=== PATIENT | female | born 1995 | race Caucasian/White ===

== ENCOUNTER 2017-08-20 07:57 | Emergency (ER) | payer OTHER, SELFPAY ==
--- NOTE | 2017-08-20 08:50 | ER ---
Nurse's Notes [facility] Name: Shawnee Green Age: 22 yrs Sex: Female : 1995 Arrival Date: 08/20/2017 Time: 07:59 Bed 19 Private MD: None, None Diagnosis: Streptococcal pharyngitis Presentation: 08/20 08:00 Presenting complaint: Patient states: sore throat, "sores on tongue", lymph nodes sv enlarged on neck that started last night. Transition of care: patient was not received from another setting of care. Onset of symptoms was August 19, 2017. Care prior to arrival: None. 08:00 Method Of Arrival: Ambulatory sv 08:00 Acuity: HOLLIE 3 sv 09:02 Risk Assessment: Do you want to hurt yourself or someone else? Patient reports no jl7 desire to harm self or others. Initial Sepsis Screen: Does the patient meet any 2 criteria? No. Patient's initial sepsis screen is negative. Does the patient have a suspected source of infection? No. Patient's initial sepsis screen is negative. 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 - Social history:: Smoking status: Patient uses tobacco products, smokes one-half pack cigarettes per day, Patient uses alcohol, every other day. Patient/guardian denies using street drugs, IV drugs. - Ebola Screening: : No symptoms or risks identified at this time. Screenin:10 Abuse screen: Denies threats or abuse. Denies injuries from another. Nutritional jl7 screening: No deficits noted. Tuberculosis screening: No symptoms or risk factors identified. Fall Risk None identified. Assessment: 08:10 General: Appears in no apparent distress. uncomfortable, Behavior is cooperative, jl7 anxious. Pain: Complains of pain in throat and neck Pain does not radiate. Pain currently is 7 out of 10 on a pain scale. Quality of pain is described as Sore. Neuro: Level of Consciousness is awake, alert, obeys commands, Oriented to person, place, time, situation. Cardiovascular: Patient's skin is warm and dry. Respiratory: Airway is patent Respiratory effort is even, unlabored, Respiratory pattern is regular, symmetrical, Breath sounds are clear bilaterally. EENT: Oral mucosa is dry. Lesions noted. Throat has patchy exudate has enlarged tonsils bilaterally Cervical nodes enlarged bilaterally. Vital Signs: 08:07 BP 118 / 76; Pulse 111; Resp 16; Temp 98.6; Pulse Ox 98% ; Weight 39.92 kg; Height 4 sv ft. 11 in. (149.86 cm); Pain 7/10; 08:07 Body Mass Index 17.77 (39.92 kg, 149.86 cm) sv ED Course: 07:59 Patient arrived in ED. as 07:59 None, None is Private Physician. as 08:00 Arm band placed on right wrist. Patient placed in an exam room, on a stretcher. sv 08:06 Triage completed. sv 08:09 Karime Oliveira, KATIE is Primary Nurse. jl7 08:10 Patient has correct armband on for positive identification. Bed in low position. Call jl7 light in reach. Side rails up X 1. Pulse ox on. NIBP on. 08:11 Jean-Claude Beach PA is PHCP. cp 08:11 Maciel Khan MD is Attending Physician. cp 08:20 Strep swab sent to lab. jl7 09:03 No provider procedures requiring assistance completed. Patient did not have IV access jl7 during this emergency room visit. Administered Medications: No medications were administered Outcome: 08:49 Discharge ordered by . cp 09:03 Discharged to home ambulatory. jl7 09:03 Condition: stable 09:03 Discharge instructions given to patient, Instructed on discharge instructions, follow up and referral plans. medication usage, Demonstrated understanding of instructions, follow-up care, medications, Prescriptions given X 1. 09:03 Patient left the ED. jl7 Signatures: Marci Barreto, RN Karen Charlton as Jean-Claude Beach PA PA cp Leal, Jahala, RN RN jl7
--- NOTE | 2017-08-20 08:50 | EDPHYS ---
Physician Documentation [facility] Name: Shawnee Green Age: 22 yrs Sex: Female : 1995 Arrival Date: 08/20/2017 Time: 07:59 Bed 19 Private MD: None, None ED Physician Maciel Khan HPI: 08/20 08:16 This 22 yrs old Female presents to ER via Ambulatory with complaints of Sore cp Throat. 08:16 The patient presents with sore throat, "sores" in throat. cp 08:16 Onset: The symptoms/episode began/occurred yesterday. cp 08:16 Severity of symptoms: in the emergency department the symptoms are unchanged, despite cp home interventions. Associated signs and symptoms: Pertinent negatives cough, dysphagia, earache, fever. 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 - Social history:: Smoking status: Patient uses tobacco products, smokes one-half pack cigarettes per day, Patient uses alcohol, every other day. Patient/guardian denies using street drugs, IV drugs. - Ebola Screening: : No symptoms or risks identified at this time. ROS: 08:20 Constitutional: Negative for body aches, chills, fever, poor PO intake. cp 08:20 Eyes: Negative for injury, pain, redness, and discharge. cp 08:20 ENT: Positive for sore throat, Negative for drainage from ear(s), ear pain, difficulty swallowing, difficulty handling secretions. 08:20 Neck: Positive for swollen nodes. 08:20 Respiratory: Negative for cough, wheezing. 08:20 Abdomen/GI: Negative for abdominal pain, nausea, vomiting, and diarrhea. 08:20 : Negative for urinary symptoms. 08:20 Skin: Negative for cellulitis, rash. 08:20 Neuro: Negative for dizziness, headache. 08:20 All other systems are negative. Exam: 08:25 Constitutional: The patient appears in no acute distress, alert, awake, non-toxic, well cp developed, well nourished. 08:25 Head/Face: Normocephalic, atraumatic. cp 08:25 Eyes: Periorbital structures: appear normal, Conjunctiva: normal, no exudate, no injection, Lids and lashes: appear normal, bilaterally. 08:25 ENT: External ear(s): are unremarkable, Ear canal(s): are normal, clear, TM's: bulging, is not appreciated, bilaterally, dullness, bilaterally, erythema, is not appreciated, bilaterally, Nose: is normal, Mouth: Lips: moist, Oral mucosa: moist, noted to have obvious stomatitis, on the tongue, abscess, is not appreciated, Posterior pharynx: Airway: no evidence of obstruction, patent, Tonsils: no enlargement, no exudate, swelling, is not appreciated, erythema, that is mild, exudate, is not appreciated. 08:25 Neck: ROM/movement: is normal, is supple, without pain, no range of motions limitations, no nuchal rigidity, Lymph nodes: lymphadenopathy is appreciated, anterior cervical nodes. 08:25 Chest/axilla: Inspection: normal, Palpation: is normal, no crepitus, no tenderness. 08:25 Cardiovascular: Rate: tachycardic, Rhythm: regular. 08:25 Respiratory: the patient does not display signs of respiratory distress, Respirations: normal, no use of accessory muscles, no retractions, no splinting, no tachypnea, labored breathing, is not present, Breath sounds: are clear throughout, no decreased breath sounds, no stridor, no wheezing. 08:25 Abdomen/GI: Exam negative for discomfort, distension, guarding, Inspection: abdomen appears normal. 08:25 Skin: cellulitis, is not appreciated, no rash present. Vital Signs: 08:07 BP 118 / 76; Pulse 111; Resp 16; Temp 98.6; Pulse Ox 98% ; Weight 39.92 kg; Height 4 sv ft. 11 in. (149.86 cm); Pain 7/10; 08:07 Body Mass Index 17.77 (39.92 kg, 149.86 cm) sv MDM: 08:11 Patient medically screened. cp 08:30 Differential diagnosis: apthous stomatitis, epiglottitis, lurdes-knight virus, group A cp strep tonsillitis, nick's angina, peritonsillar abscess pharyngitis, retropharyngeal abcess. 08:47 Data reviewed: vital signs, nurses notes, lab test result(s), and as a result, I will cp discharge patient. 08:47 Counseling: I had a detailed discussion with the patient and/or guardian regarding: the cp historical points, exam findings, and any diagnostic results supporting the discharge/admit diagnosis, lab results, to return to the emergency department if symptoms worsen or persist or if there are any questions or concerns that arise at home. 08/20 08:17 Order name: Strep; Complete Time: 08:41 cp 08/20 08:41 Interpretation: Reviewed. cp Administered Medications: No medications were administered Disposition: 11:54 Co-signature as Attending Physician, Maciel Khan MD I agree with the assessment and kdr plan of care. Disposition: 08/20/17 08:49 Discharged to Home. Impression: Streptococcal pharyngitis. - Condition is Stable. - Discharge Instructions: Salt Water Gargle, Strep Throat. - Prescriptions for Amoxicillin 875 mg Oral Tablet - take 1 tablet by ORAL route every 12 hours for 10 days; 20 tablet. - Medication Reconciliation Form, Thank You Letter, Antibiotic Education, Prescription Opioid Use form. - Follow up: Private Physician; When: 2 - 3 days; Reason: symptoms continue. - Problem is new. - Symptoms are unchanged. Signatures: Dispatcher [employer] Marci Soto, KATIE RN Maciel Khan MD MD [facility] Jean-Claude Beach PA PA cp Leal, Jahala RN RN jl7 Corrections: (The following items were deleted from the chart) 09:03 08:49 08/20/2017 08:49 Discharged to Home. Impression: Streptococcal pharyngitis. jl7 Condition is Stable. Forms are Medication Reconciliation Form, Thank You Letter, Antibiotic Education, Prescription Opioid Use. Follow up: Private Physician; When: 2 - 3 days; Reason: symptoms continue. Problem is new. Symptoms are unchanged. cp
== END 2017-08-20 09:03 | disposition home or self-care (01) ==
LOC: ER 07:57
DX: J02.0 Streptococcal pharyngitis (principal); F17.210 Nicotine dependence, cigarettes, uncomplicated
CPT/HCPCS: 87081; 99283